=== PATIENT | female | born 1970 | race Caucasian/White ===

== ENCOUNTER 2020-08-15 20:46 | Emergency (ER) | payer OTHER ==
[~2020-08-15] VITALS: Ht 165.1 cm; Wt 68.0 kg
[2020-08-15 20:51] VITALS: BP 151/89
[2020-08-15] MEDS ORDERED: KEFLEX500 M1 PO ×3 (21:36→21:55)
== END 2020-08-15 22:05 | disposition home or self-care (01) ==
LOC: ED 20:46
DX: S61.215A Laceration without foreign body of left ring finger without damage to nail, initial encounter (principal); Z88.6 Allergy status to analgesic agent; W26.0XXA Contact with knife, initial encounter; Y93.89 Activity, other specified; Y92.89 Other specified places as the place of occurrence of the external cause; Y99.8 Other external cause status

== ENCOUNTER 2021-03-27 17:35 | Emergency (ER) | payer OTHER ==
[~2021-03-27] VITALS: Wt 68.9 kg
[~2021-03-27 17:35] MED LIST: KEFLEX500 M1 PO
[2021-03-27 17:39] VITALS: BP 143/78
[2021-03-27] MEDS ORDERED: CEPHALEXIN500 M1 PO (19:55)
[2021-03-27] MEDS ORDERED: IBUPROFEN600 MG PO (19:55)
== END 2021-03-27 20:59 | disposition home or self-care (01) ==
LOC: ED 17:35
DX: S61.212A Laceration without foreign body of right middle finger without damage to nail, initial encounter (principal); F17.200 Nicotine dependence, unspecified, uncomplicated; Z88.5 Allergy status to narcotic agent; Z79.2 Long term (current) use of antibiotics; W27.8XXA Contact with other nonpowered hand tool, initial encounter; Y93.89 Activity, other specified; Y92.89 Other specified places as the place of occurrence of the external cause; Y99.0 Civilian activity done for income or pay

== ENCOUNTER 2021-12-10 14:43 | Emergency (ER) | payer OTHER ==
[~2021-12-10 14:43] MED LIST changes: +CEPHALEXIN500 M1 PO; +IBUPROFEN600 MG PO
[2021-12-10 14:55] VITALS: BP 156/89
[2021-12-10] MEDS ORDERED: HYDROCODONE-AC1 EAC1 PO (15:24)
[2021-12-10] MEDS ORDERED: GENTACIDIN5 ML NAS (15:24)
== END 2021-12-10 15:38 | disposition home or self-care (01) ==
LOC: ED 14:43
DX: S05.02XA Injury of conjunctiva and corneal abrasion without foreign body, left eye, initial encounter (principal); H10.9 Unspecified conjunctivitis; B34.0 Adenovirus infection, unspecified; Z88.5 Allergy status to narcotic agent; X58.XXXA Exposure to other specified factors, initial encounter; Y93.89 Activity, other specified; Y92.89 Other specified places as the place of occurrence of the external cause; Y99.9 Unspecified external cause status

== ENCOUNTER 2022-05-23 16:30 | Emergency (ER) | payer OTHER ==
[~2022-05-23] VITALS: Ht 165.1 cm; Wt 68.0 kg
[~2022-05-23 16:30] MED LIST changes: +GENTACIDIN5 ML NAS; +HYDROCODONE-AC1 EAC1 PO
[2022-05-23] MEDS ORDERED: CYCLOBENZAPRINE10 MG PO (17:12)
[2022-05-23] MEDS ORDERED: TYLENOL325 M1 PO (17:12)
[2022-05-23] MEDS ORDERED: NAPROXEN250 MG PO (17:12)
== END 2022-05-23 18:00 | disposition home or self-care (01) ==
LOC: ED 16:30
DX: M54.41 Lumbago with sciatica, right side (principal); Z88.8 Allergy status to other drugs, medicaments and biological substances